=== PATIENT | female | born 1985 ===

== ENCOUNTER → 2016-08-10 | Outpatient (CLI) | payer OTHER ==
[~2016-08-10] MED LIST: ACET-1256 PO; CHOL1000 PO; CYAN100T PO; FOLI1TAB7 PO; MISO200T PO; PRT/20 PO
[2016-08-10 16:50] LABS: URINE APPEARANCE CLEAR (CLEAR); URINE BILIRUBIN NEG (NEG); URINE COLOR YELLOW; URINE NITRITE NEG (NEG); URINE PH 6.5 (4.5-7.5); URINE SPECIFIC GRAVITY 1.001 (1.000-1.030); UROBILINOGEN NEG (NEG)
[2016-08-10 16:55] LABS: MANUAL MICROSCOPIC REQUIRED? NO; REVIEW REQ? NO
== END | disposition home or self-care (01) ==
LOC: C.LABSPEC 16:02
PROVIDERS: ATTEND Obstetrics & Gynecology
DX: Z34.90 Encounter for supervision of normal pregnancy, unspecified, unspecified trimester (principal)

== ENCOUNTER → 2016-08-14 | Outpatient (CLI) | payer OTHER | END | disposition home or self-care (01) | LOC: C.PAPS 10:20 | PROVIDERS: ATTEND Obstetrics & Gynecology | DX: O36.80X0 Pregnancy with inconclusive fetal viability, not applicable or unspecified (principal) ==

== ENCOUNTER → 2016-08-14 | Outpatient (CLI) | payer OTHER ==
[2016-08-18 01:34] LABS: CHLAMYDIA TRACH RNA*** NOT DETECTED (NOT DETECTED); GC (NEIS GONORRHOEAE)RNA** NOT DETECTED (NOT DETECTED)
== END | disposition home or self-care (01) ==
LOC: C.LABSPEC 16:14
PROVIDERS: ATTEND Obstetrics & Gynecology
DX: Z34.90 Encounter for supervision of normal pregnancy, unspecified, unspecified trimester (principal)

== ENCOUNTER → 2016-08-14 | Outpatient (CLI) | payer OTHER ==
[2016-08-14 14:57] LABS: BLOOD UREA NITROGEN 10 mg/dl (7-18); BUN/CREATININE RATIO 15.5 (10-20); CALCIUM 8.5 mg/dl (8.5-10.1); CARBON DIOXIDE 23 mmol/L (21-32); CHLORIDE 106 mmol/L (98-107); CREATININE 0.62 mg/dl (0.60-1.20); GLUCOSE 97 mg/dl (70-99); MAGNESIUM 1.9 mg/dl (1.8-2.4); POTASSIUM 3.5 mmol/L (3.5-5.1); SODIUM 139 mmol/L (136-145)
[2016-08-14 15:08] LABS: ALB/GLOB RATIO 0.9 (0.9-2); ALKALINE PHOSPHATASE 34 U/L (45-117); ALT/SGPT 19 U/L (12-78); AST/SGOT 16 U/L (15-37)
== END | disposition home or self-care (01) ==
LOC: C.LAB1850 12:57
PROVIDERS: ATTEND Obstetrics & Gynecology
DX: R51 Headache (principal); O36.80X0 Pregnancy with inconclusive fetal viability, not applicable or unspecified; Z3A.00 Weeks of gestation of pregnancy not specified

== ENCOUNTER 2016-08-31 20:35 | Emergency (ER) | payer OTHER ==
[~2016-08-31] VITALS: Ht 152.4 cm; Wt 49.0 kg
[~2016-08-31 20:35] MED LIST changes: -CHOL1000 PO; -CYAN100T PO; -FOLI1TAB7 PO; -MISO200T PO
[2016-08-31 20:48] VITALS: TEMP 36.8; Ht 152.4 cm; Wt 49.0 kg
[2016-08-31 21:17] LABS: BASO % 0.3 %; BASO ABS # 0.02 K/uL (0-0.2); HEMATOCRIT 30.6 % (37-47); IG% 0.3 %; LYMPH % 48.8 %; LYMPH ABS # 3.85 K/uL (1.2-3.4); MEAN CELL VOLUME 68.5 fL (80-100); MEAN CORPUSCULAR HEMOGLOBIN 22.6 pg (25-34); MEAN PLATELET VOLUME 10.8 fL (7.4-10.4); MONO % 9.8 %; NEUT % 34.8 %; PLATELET COUNT 250 K/uL (130-400); RED BLOOD COUNT 4.47 M/uL (4.2-5.4); WHITE BLOOD COUNT 7.89 K/uL (4.8-10.8)
[2016-08-31 21:33] LABS: BUN/CREATININE RATIO 14.1 (10-20); CALCIUM 8.2 mg/dl (8.5-10.1); CREATININE 0.51 mg/dl (0.60-1.20); POTASSIUM 3.4 mmol/L (3.5-5.1)
[2016-08-31] MEDS ORDERED: SODIUM CHLORIDE 0.9% 1000ML 1,000 ML IV STA (21:45)
[2016-08-31 22:01] LABS: COMPLETE YES; OVALOCYTES 1+; SCHISTOCYTES 1+
[2016-08-31] MEDS ORDERED: CYAN100T PO (22:21)
[2016-08-31] MEDS ORDERED: CHOL1000 PO (22:21)
[2016-08-31] MEDS ORDERED: FOLI1TAB7 PO (22:21)
[2016-08-31] MEDS ORDERED: MISO200T PO (22:21)
[2016-08-31 23:06] LABS: MANUAL MICROSCOPIC REQUIRED? YES; URINE APPEARANCE CLOUDY (CLEAR); URINE BILIRUBIN NEG (NEG); URINE COLOR RED; URINE NITRITE NEG (NEG); UROBILINOGEN NEG (NEG)
[2016-08-31 23:08] LABS: REVIEW REQ? NO
[2016-08-31 23:10] LABS: URINE BACTERIA NEG (NEG); URINE RBC >30 /hpf (0-4)
[2016-08-31 23:11] LABS: ZZUR CULT IF INDIC CLEAN CATCH NO
[2016-08-31 23:28] LABS: BASO % 0.3 %; BASO ABS # 0.02 K/uL (0-0.2); EOS % 3.1 %; HEMATOCRIT 27.5 % (37-47); IG% 0.3 %; LYMPH ABS # 1.87 K/uL (1.2-3.4); MEAN CELL VOLUME 68.4 fL (80-100); MEAN CORPUSCULAR HEMOGLOBIN 22.1 pg (25-34); MEAN CORPUSCULAR HGB CONC 32.4 g/dl (32-36); MEAN PLATELET VOLUME 10.7 fL (7.4-10.4); MONO % 7.1 %; NEUT % 64.2 %; PLATELET COUNT 225 K/uL (130-400); RED BLOOD COUNT 4.02 M/uL (4.2-5.4); WHITE BLOOD COUNT 7.49 K/uL (4.8-10.8)
--- NOTE | 2016-08-31 23:48 | EMERGENCY ROOM VISIT NOTE ---
History First contact with patient: 20:48 Chief Complaint: ED VAG BLEEDING Stated Complaint: VAGINAL BLEEDING History of Present Illness The patient is a 31 year old female who presents to the Emergency Room with complaints of vaginal bleeding. The patient reports that she had a miscarriage earlier this month. She was given the option to have surgery or take a pill and chose to take the pill. She states that she took Cytotec today approximately 8 hours ago. Over the past 4-6 hours, she has had severe bleeding and has been passing clots. She denies any significant pain. She reports that she has been changing her pad every 10 minutes. She sees Bhav[facility]. She reports that she called them and they told her not to worry about the bleeding. She denies any urinary symptoms, nausea or vomiting. She is blood type O positive. Review of Systems A complete 10-point Review of Systems was discussed with the patient, with pertinent positives and negatives listed in the History of Present Illness. All remaining Review of Systems questions can be considered negative unless otherwise specified. Past Medical/Surgical History Medical Problems: (1) CALCULUS OF KIDNEY (2) Chest pain (3) Cholecystectomy (4) G6PD deficiency (5) Hypokalemia (6) Kidney stone (7) Tingling (8) Tingling Family History Asthma Hypertension Social History Smoking Status: Never Smoker Alcohol Use: none Drug Use: none Marital Status: Housing Status: lives with family Occupation Status: [employer] student Current/Historical Medications Scheduled Acetaminophen (Tylenol), 1,000 MG PO prn ud Cholecalciferol (Vitamin D3), 1 TAB PO DAILY Cyanocobalamin (Vitamin B-12), 100 MCG PO DAILY Folic Acid (Folvite), 1 MG PO DAILY Misoprostol (Cytotec), 800 MCG PO DIRECTED Allergies Coded Allergies: Sulfa Drugs (Verified Allergy, Severe, ANAPHYLAXIS, 08/31/16) PT HAS HX OF [id number] DRUGS REACT WITH THIS DISORDER AND COMPROMISE BLOOD Uncoded Allergies: G6PD ALLERGIES (Allergy, Unknown, [place], 04/21/16) Physical Exam Vital Signs Date Time Temp Pulse Resp B/P Pulse Ox O2 Delivery O2 Flow Rate FiO2 09/01/16 00:00 75 18 129/70 98 08/31/16 22:03 100 18 108/64 99 Room Air 08/31/16 20:54 77 08/31/16 20:48 36.8 78 18 124/72 98 Room Air Physical Exam VITALS: Vitals are noted on the nurse's note and reviewed by myself. Vital signs stable. GENERAL: This is a 31-year-old female, in no acute distress, nondiaphoretic, well-developed well-nourished. SKIN: Capillary reflex less than 2 seconds. HEART: Regular rate and rhythm without murmurs gallops or rubs. LUNGS: Clear to auscultation bilaterally without wheezes, rales or rhonchi. ABDOMEN: Positive bowel sounds x 4. Soft, nontender to palpation. PELVIC: There is a significant amount of blood in the vaginal vault with blood clots present. Cervix is open. NEURO: Patient was alert and oriented to person place and time. Medical Decision & Procedures Laboratory Results 08/31/16 23:07 Red Blood Count 4.02, Mean Corpuscular Volume 68.4, Mean Corpuscular Hemoglobin 22.1, Mean Corpuscular Hemoglobin Concent 32.4, Mean Platelet Volume 10.7, Neutrophils (%) (Auto) 64.2, Lymphocytes (%) (Auto) 25.0, Monocytes (%) (Auto) 7.1, Eosinophils (%) (Auto) 3.1, Basophils (%) (Auto) 0.3, Neutrophils # (Auto) 4.82, Lymphocytes # (Auto) 1.87, Monocytes # (Auto) 0.53, Eosinophils # (Auto) 0.23, Basophils # (Auto) 0.02 08/31/16 20:30 Test 08/31/16 20:30 08/31/16 21:45 08/31/16 23:07 Ovalocytes 1+ Schistocytes 1+ Anion Gap 7.0 mmol/L (3-11) Est Creatinine Clear Calc Drug Dose 112.7 ml/min Estimated GFR () 146.4 Estimated GFR (Non- 126.3 BUN/Creatinine Ratio 14.1 (10-20) Calcium Level 8.2 mg/dl (8.5-10.1) Total Bilirubin 0.4 mg/dl (0.2-1) Aspartate Amino Transf (AST/SGOT) 20 U/L (15-37) Alanine Aminotransferase (ALT/SGPT) 22 U/L (12-78) Alkaline Phosphatase 35 U/L (45-117) Total Protein 6.9 gm/dl (6.4-8.2) Albumin 3.4 gm/dl (3.4-5.0) Globulin 3.5 gm/dl (2.5-4.0) Albumin/Globulin Ratio 1.0 (0.9-2) Human Chorionic Gonadotropin, Quant 70364 mIU/mL Urine Color RED Urine Appearance CLOUDY (CLEAR) Urine pH 6.0 (4.5-7.5) Urine Specific [place] 1.010 (1.000-1.030) Urine Protein NEG (NEG) Urine Glucose (UA) NEG (NEG) Urine Ketones NEG (NEG) Urine Occult Blood 3+ (NEG) Urine Nitrite NEG (NEG) Urine Bilirubin NEG (NEG) Urine Urobilinogen NEG (NEG) Urine Leukocyte Esterase NEG (NEG) Urine RBC >30 /hpf (0-4) Urine WBC 1-5 /hpf (0-5) Urine Epithelial Cells 0-5 /lpf (0-5) Urine Bacteria NEG (NEG) White Blood Count 7.49 K/uL (4.8-10.8) Red Blood Count 4.02 M/uL (4.2-5.4) Hemoglobin 8.9 g/dL (12.0-16.0) Hematocrit 27.5 % (37-47) Mean Corpuscular Volume 68.4 fL (80-100) Mean Corpuscular Hemoglobin 22.1 pg (25-34) Mean Corpuscular Hemoglobin Concent 32.4 g/dl (32-36) Platelet Count 225 K/uL (130-400) Mean Platelet Volume 10.7 fL (7.4-10.4) Neutrophils (%) (Auto) 64.2 % Lymphocytes (%) (Auto) 25.0 % Monocytes (%) (Auto) 7.1 % Eosinophils (%) (Auto) 3.1 % Basophils (%) (Auto) 0.3 % Neutrophils # (Auto) 4.82 K/uL (1.4-6.5) Lymphocytes # (Auto) 1.87 K/uL (1.2-3.4) Monocytes # (Auto) 0.53 K/uL (0.11-0.59) Eosinophils # (Auto) 0.23 K/uL (0-0.5) Basophils # (Auto) 0.02 K/uL (0-0.2) RDW Standard Deviation 34.5 fL (36.4-46.3) RDW Coefficient of Variation 13.7 % (11.5-14.5) Immature Granulocyte % (Auto) 0.3 % Immature Granulocyte # (Auto) 0.02 K/uL (0.00-0.02) Microcytosis PRESENT Medications Administered Medications (Trade) Dose Ordered Sig/Dyan Route Start Time Stop Time Status Last Admin Dose Admin Sodium Chloride (Nss 1000ml) 1,000 ml @ 999 mls/hr Q1H1M STAT IV 08/31/16 21:45 08/31/16 22:45 DC 08/31/16 21:45 999 MLS/HR Medical Decision Differential diagnosis includes anemia, hemorrhage, vaginal bleeding secondary to medical , among others. The patient was evaluated as above. Labs were drawn and IV access was obtained. Imaging studies were performed and read by radiology as above. The patient was medicated with 1 L normal saline solution. The patient was reassessed multiple times during their stay in the emergency department and remained in stable condition. The patient is a 31-year-old female who presents today complaining of heavy vaginal bleeding after taking Cytotec. Vital signs are stable. Labs revealed a hemoglobin of 10.1. Pelvic exam did reveal a moderate amount of blood within the vaginal vault as well as several clots. The case was discussed with Dr. Manzo, the on-call provider for [facility]. He recommended observing the patient and reassuring her that this is a normal response to this medication. Hemoglobin was rechecked 90 minutes later and was 8.9. This decreased was expected, as the patient received 1 L normal saline solution IV. I do feel the patient should have close follow-up with [facility] tomorrow. She will return for worsening symptoms. Based on the patient's presentation, lab results, and imaging studies, I feel the patient is stable for outpatient treatment. The patient's case was reviewed with Dr. Ramirez, ED attending physician, who agreed with my assessment and treatment plan. Discharge instructions were reviewed with the patient. The patient verbalized understanding of my assessment and treatment plan and was discharged home in good condition. Impression Primary Impression: Excessive vaginal bleeding Departure Information Dispostion Home / Self-Care Condition GOOD Referrals Blanka Robertson C.R.N.P. (PCP) Hannah Manzo M.D. Patient Instructions My [facility] Additional Instructions You should follow-up with [facility] tomorrow for a recheck. Rest with minimal activity. Return to the emergency department immediately with worsening bleeding, lightheadedness, dizziness, or any other new/concerning symptoms.
[2016-09-01] VITALS: BP 129/70; PULSE 75; O2SAT 98
[2016-09-01 00:07] LABS: COMPLETE YES; MICROCYTOSIS PRESENT
== END 2016-09-01 00:01 | disposition home or self-care (01) ==
LOC: EDBD 20:35 → C.EDC 20:38
DX: N93.9 Abnormal uterine and vaginal bleeding, unspecified (principal); Z90.49 Acquired absence of other specified parts of digestive tract

== ENCOUNTER → 2016-09-30 | Outpatient (CLI) | payer OTHER ==
[~2016-09-30] MED LIST changes: +CHOL1000 PO; +CYAN100T PO; +FOLI1TAB7 PO; +MISO200T PO; -PRT/20 PO
== END | disposition home or self-care (01) ==
LOC: C.LAB1850 10:39
PROVIDERS: ATTEND Nurse Practitioner Adult Health
DX: E53.8 Deficiency of other specified B group vitamins (principal); E55.9 Vitamin D deficiency, unspecified; O02.1 Missed abortion; N93.9 Abnormal uterine and vaginal bleeding, unspecified

== ENCOUNTER → 2017-02-18 | Outpatient (CLI) | payer OTHER ==
[~2017-02-18] VITALS: Ht 152.4 cm; Wt 48.4 kg
[2017-02-18 09:39] VITALS: BP 100/62; PULSE 70; Ht 152.4 cm; Wt 48.4 kg
== END | disposition home or self-care (01) ==
LOC: C.NEUR 08:36
PROVIDERS: ATTEND Internal Medicine Pulmonary Disease
DX: F51.04 Psychophysiologic insomnia (principal); F41.9 Anxiety disorder, unspecified

== ENCOUNTER → 2017-05-17 | Outpatient (CLI) | payer OTHER | END | disposition home or self-care (01) | LOC: C.LAB1850 11:24 | PROVIDERS: ATTEND Obstetrics & Gynecology | DX: O20.0 Threatened abortion (principal) ==

== ENCOUNTER → 2017-05-21 | Outpatient (CLI) | payer OTHER | END | disposition home or self-care (01) | LOC: C.LAB1850 14:32 | PROVIDERS: ATTEND Obstetrics & Gynecology | DX: O20.0 Threatened abortion (principal); Z3A.00 Weeks of gestation of pregnancy not specified ==